=== PATIENT | female | born 1940 | race Caucasian/White ===

== ENCOUNTER 2018-07-10 13:32 | Emergency (ER) | payer MEDICARE, OTHER ==
[2018-07-10] MEDS ORDERED: LORAZEPAM INJ 2 MG/1 ML VIAL IV ONE (15:27)
--- NOTE | 2018-07-10 15:32 | ER Document Report ---
ED Medical Screen (RME) - General Chief Complaint: Chest Pain Stated Complaint: CHEST PAIN Time Seen by Provider: 07/10/18 15:00 Primary Care Provider: IFTIKHAR WALLACE [Primary Care Provider] - Follow up as needed Mode of Arrival: Ambulatory Information source: Patient TRAVEL OUTSIDE OF THE [place]S. IN LAST 30 DAYS: No - HPI Notes: 07/10/18 15:28 Rapid medical exam in triage : patient is a 78-year-old female history of atrial fibrillation, thyroid irregularity, hyponatremia, CHF, on CPAP, stage III kidney disease presents with report that she is down from [place] staying with her daughter and presents with report of intermittent chest pain for the last week with dyspnea on exertion and headache and generalized dizziness. The patient reports her blood pressures have been running elevated. She has been checking them regularly. The patient denies any belching or cough. She describes her headache is intermittent and generalized. She reports no focal numbness or paresthesia. The patient has a history of anxiety and lorazepam as 1 of her medications, which include isosorbide, Coumadin, amlodipine, Synthroid, atenolol, Neurontin, metformin. No cough or congestion. Patient has dyspnea on exertion but no orthopnea. No change in the chronic right lower extremity decubitus ulcer. Physical exam HEENT atraumatic normocephalic Neck supple no JVD Cardiovascular regular rhythm with a slightly bradycardic rate of 52 with 1/6 systolic ejection murmur best auscultated at the apex. Lungs coarse breath sounds scant dry crackles to both bases Abdomen nontender no mass. Extremities 1+ lower extremity edema there is a stage III decubitus right lower extremity medial aspect measures 2 cm diameter without evidence for infection. Neurologic exam no focal deficits no cerebellar ataxia no motor or sensory deficits. EKG is interpreted by me showed sinus bradycardia heart rate of 51 with LVH and repolarization changes. There is no gross evidence for acute ND or ischemia. No old EKG available. Patient will have head CT chest x-ray lab workup and further evaluation and care please see partner's note for further management and evaluation. 07/10/18 15:30 - Related Data Allergies/Adverse Reactions: No Known Allergies Allergy (Unverified 07/10/18 13:35) Past Medical History - General Information source: Patient - Social History Chew tobacco use (# tins/day): No Frequency of alcohol use: Rare Drug Abuse: None - Past Medical History Cardiac Medical History: Reports: Hx Atrial Fibrillation, Hx Congestive Heart Failure, Hx Hypertension Renal/ Medical History: Denies: Hx Peritoneal Dialysis Psychiatric Medical History: Reports: Hx Depression - anxiety Past Surgical History: Reports: Hx Abdominal Surgery, Hx Hysterectomy, Hx Orthopedic Surgery - TMJ, L foot amputation Physical Exam - Vital signs Vitals: Temp Pulse Resp BP Pulse Ox 98.0 F 57 L 20 165/71 H 97 07/10/18 13:56 07/10/18 13:56 07/10/18 13:56 07/10/18 13:56 07/10/18 13:56 Course - Vital Signs Vital signs: Temp Pulse Resp BP Pulse Ox 98.0 F 57 L 20 165/71 H 97 07/10/18 13:56 07/10/18 13:56 07/10/18 13:56 07/10/18 13:56 07/10/18 13:56 Doctor's Discharge - Discharge Referrals: LOCALMD,NO [Primary Care Provider] - Follow up as needed
--- NOTE | 2018-07-10 15:54 | RADIOLOGY REPORT (SQ) ---
EXAM DESCRIPTION: CT HEAD WITHOUT COMPLETED DATE/TIME: 07/10/2018 3:44 pm REASON FOR STUDY: headache, on coumadin COMPARISON: None. TECHNIQUE: Axial images acquired through the brain without intravenous contrast. Images reviewed wi th bone, brain and subdural windows. Additional sagittal and coronal reconstructions were generated. Images stored on PACS. All CT scanners at this facility use dose modulation, iterative reconstruction, and/or weight based d osing when appropriate to reduce radiation dose to as low as reasonably achievable (ALARA). [facility]: Dose Right [facility]: CareDose [facility]: Dose Right [facility]: Teradose 4D [facility]: DoPay RADIATION DOSE: CT Rad equipment meets quality standard of care and radiation dose reduction techniq ues were employed. CTDIvol: 53.2 mGy. DLP: 991 mGy-cm. mGy. LIMITATIONS: None. FINDINGS: VENTRICLES: Normal size and contour. CEREBRUM: No CT evidence of acute large territory ischemic change, acute intracranial hemorrhage, mas s effect, or midline shift. Multiple chronic appearing infarcts are present in the bilateral basal ga nglia. More diffuse small vessel ischemic changes present in the bifrontal and biparietal white rayo er. CEREBELLUM: Old lacunar infarct in the right cerebellar hemisphere. No acute large territory ischemi c change in the posterior fossa. No posterior fossa shift or mass effect EXTRAAXIAL SPACES: No fluid collections. No masses. ORBITS AND GLOBE: No intra- or extraconal masses. Normal contour of globe without masses. CALVARIUM: No fracture. PARANASAL SINUSES: No fluid or mucosal thickening. SOFT TISSUES: No mass or hematoma. OTHER: No other significant finding. IMPRESSION: No acute findings. Old lacunar infarcts in the bilateral basal ganglia and right cerebellar hemisphere. Chronic small v essel white matter disease in the bifrontal and biparietal regions EVIDENCE OF ACUTE STROKE: NO. COMMENT: Quality ID # 436: Final reports with documentation of one or more dose reduction techniques (e.g., Automated exposure control, adjustment of the mA and/or kV according to patient size, use of iterative reconstruction technique) TECHNICAL DOCUMENTATION: JOB ID: [id number] [employer]- All Rights Reserved Reading location - IP/workstation name: [email or web address]
[2018-07-10 15:55] LABS: ABSOLUTE BASOPHILS # (AUTO) 0.1 10^3/uL (0.0-0.2); ABSOLUTE EOSINOPHILS # (AUTO) 0.1 10^3/uL (0.0-0.6); ABSOLUTE LYMPHOCYTES (AUTO) 1.1 10^3/uL (0.5-4.7); ABSOLUTE MONOCYTES (AUTO) 0.6 10^3/uL (0.1-1.4); ABSOLUTE NEUT (AUTO) 7.6 10^3/uL (1.7-8.2); BASOPHILS % (AUTO) 0.7 % (0-2); EOSINOPHILS % (AUTO) 0.9 % (0-6); HEMATOCRIT 41.9 % (36.0-47.0); HEMOGLOBIN 14.4 g/dL (12.0-15.5); LYMPHOCYTES % (AUTO) 11.9 % (13-45); MEAN CORPUSCULAR HEMOGLOBIN 31.6 pg (27.0-33.4); MEAN CORPUSCULAR HGB CONC 34.3 g/dL (32.0-36.0); MEAN CORPUSCULAR VOLUME 92 fl (80-97); MONOCYTES % (AUTO) 5.9 % (3-13); PLATELET COUNT 314 10^3/uL (150-450); RED BLOOD COUNT 4.55 10^6/uL (3.72-5.28); RED CELL DISTRIBUTION WIDTH 14.4 % (11.5-14.0); SEGMENTED NEUTROPHILS % (AUTO) 80.6 % (42-78); TOTAL CELLS COUNTED % (AUTO) 100 %; WHITE BLOOD COUNT 9.4 10^3/uL (4.0-10.5)
[2018-07-10 15:57] LABS: APPEARANCE,URINE CLEAR; BILIRUBIN,URINE NEGATIVE (NEGATIVE); COLOR,URINE STRAW; GLUCOSE, URINE NEGATIVE (NEGATIVE); KETONES,URINE NEGATIVE (NEGATIVE); LEUKOCYTE ESTERASE,URINE NEGATIVE (NEGATIVE); NITRITE,URINE NEGATIVE (NEGATIVE); PROTEIN,URINE NEGATIVE (NEGATIVE); URINE SPECIFIC GRAVITY 1.004; UROBILINOGEN,URINE NEGATIVE mg/dL (<2.0)
--- NOTE | 2018-07-10 15:58 | RADIOLOGY REPORT (SQ) ---
EXAM DESCRIPTION: CHEST SINGLE VIEW COMPLETED DATE/TIME: 07/10/2018 3:45 pm REASON FOR STUDY: chest pain COMPARISON: None. EXAM PARAMETERS: NUMBER OF VIEWS: One view. TECHNIQUE: Single frontal radiographic view of the chest acquired. RADIATION DOSE: NA LIMITATIONS: None. FINDINGS: LUNGS AND PLEURA: No opacities, masses or pneumothorax. No pleural effusion. MEDIASTINUM AND HILAR STRUCTURES: No masses. Contour normal. HEART AND VASCULAR STRUCTURES: Heart normal in size. Normal vasculature. BONES: No acute findings. HARDWARE: None in the chest. OTHER: No other significant finding. IMPRESSION: NO ACUTE RADIOGRAPHIC FINDING IN THE CHEST. TECHNICAL DOCUMENTATION: JOB ID: [id number] [employer]- All Rights Reserved Reading location - IP/workstation name: [email or web address]
[2018-07-10 16:04] LABS: INTERNATIONAL RATION (INR) 1.29; PROTHROMBIN TIME 16.7 SEC (11.4-15.4)
[2018-07-10 16:09] LABS: ALANINE AMINOTRANSFERASE 27 U/L (9-52); ALBUMIN 4.8 g/dL (3.5-5.0); ALKALINE PHOSPHATASE 80 U/L (38-126); ANION GAP 13 (5-19); ASPARTATE AMINO TRANSFERASE 28 U/L (14-36); BILIRUBIN,DIRECT 0.1 mg/dL (0.0-0.4); BILIRUBIN,TOTAL 0.5 mg/dL (0.2-1.3); BLOOD UREA NITROGEN 17 mg/dL (7-20); CALCIUM 10.1 mg/dL (8.4-10.2); CARBON DIOXIDE 27 mmol/L (22-30); CHLORIDE 95 mmol/L (98-107); GLUCOSE 99 mg/dL (75-110); POTASSIUM 4.5 mmol/L (3.6-5.0); SODIUM 135.3 mmol/L (137-145); TOTAL PROTEIN 8.3 g/dL (6.3-8.2)
[2018-07-10 16:21] LABS: TROPONIN I 0.015 ng/mL
[2018-07-10 16:25] LABS: FREE T4 (FREE THYROXINE) 1.24 ng/dL (0.78-2.19)
[2018-07-10 16:39] LABS: THYROID STIMULATING HORMONE 0.84 uIU/mL (0.47-4.68)
--- NOTE | 2018-07-10 17:21 | ER Document Report ---
ED Cardiac - General Chief Complaint: Chest Pain Stated Complaint: CHEST PAIN Time Seen by Provider: 07/10/18 15:00 Primary Care Provider: IFTIKHAR WALLACE [NO LOCAL MD] - Follow up as needed Mode of Arrival: Ambulatory Information source: Patient TRAVEL OUTSIDE OF THE [place] IN LAST 30 DAYS: No - HPI Patient complains to provider of: Chest pain, Shortness of breath Was the onset of pain: Gradual Is the pain a: New problem Chest pain location: Substernal Quality of pain: Intermittent, Mild, Achy Severity now: Mild Severity at worst: Mild Chest pain precipitating factors: At Rest Associated symptoms: Shortness of breath Exacerbated by: Denies Relieved by: Nothing Similar symptoms previously: No Recently seen / treated by doctor: No Notes: Patient is a 78-year-old female presenting to the emergency room today complaining of intermittent chest pain with shortness of breath and dyspnea on exertion as well as a headache over the past week, she is visiting her daughter from [place] since 07/01/2018, she denies a history of similar symptoms previously although she has a history of congestive heart failure, hypertension and hypothyroidism, she denies a cough, congestion or fever, denies nausea or vomiting, no abdominal pain - Related Data Allergies/Adverse Reactions: No Known Allergies Allergy (Unverified 07/10/18 13:35) Past Medical History - General Information source: Patient - Social History Smoking Status: Never Smoker Chew tobacco use (# tins/day): No Frequency of alcohol use: Rare Drug Abuse: None Family History: None Patient has suicidal ideation: No Patient has homicidal ideation: No - Past Medical History Cardiac Medical History: Reports: Hx Atrial Fibrillation, Hx Congestive Heart Failure, Hx Hypertension Renal/ Medical History: Denies: Hx Peritoneal Dialysis Psychiatric Medical History: Reports: Hx Depression - anxiety Past Surgical History: Reports: Hx Abdominal Surgery, Hx Hysterectomy, Hx Orthopedic Surgery - TMJ, L foot amputation Review of Systems - Review of Systems Constitutional: No symptoms reported EENT: No symptoms reported Cardiovascular: See HPI Respiratory: See HPI Gastrointestinal: No symptoms reported Genitourinary: No symptoms reported Female Genitourinary: No symptoms reported Musculoskeletal: No symptoms reported Skin: No symptoms reported Hematologic/Lymphatic: No symptoms reported Neurological/Psychological: See HPI -: Yes All other systems reviewed and negative Physical Exam - Vital signs Vitals: Temp Pulse Resp BP Pulse Ox 98.0 F 57 L 20 165/71 H 97 07/10/18 13:56 07/10/18 13:56 07/10/18 13:56 07/10/18 13:56 07/10/18 13:56 Interpretation: Normal - General General appearance: Appears well, Alert - HEENT Head: Normocephalic, Atraumatic Eyes: Normal Pupils: PERRL - Respiratory Respiratory status: No respiratory distress Chest status: Nontender Breath sounds: Normal Chest palpation: Normal - Cardiovascular Rhythm: Regular, Bradycardia Heart sounds: Normal auscultation Murmur: No - Abdominal Inspection: Normal Distension: No distension Bowel sounds: Normal Tenderness: Nontender Organomegaly: No organomegaly - Back Back: Normal, Nontender - Extremities General upper extremity: Normal inspection, Nontender, Normal color, Normal ROM, Normal temperature General lower extremity: Normal color, Normal ROM, Normal temperature. No: Anand's sign - Neurological Neuro grossly intact: Yes Cognition: Normal Orientation: AAOx4 Lorton Coma Scale Eye Opening: Spontaneous Lorton Coma Scale Verbal: Oriented Lorton Coma Scale Motor: Obeys Commands Martita Coma Scale Total: 15 Speech: Normal Motor strength normal: LUE, RUE, LLE, RLE Sensory: Normal - Psychological Associated symptoms: Normal affect, Normal mood - Skin Skin Temperature: Warm Skin Moisture: Dry Skin Color: Normal Course - Re-evaluation Re-evalutation: 07/10/18 21:46 Lab and imaging findings discussed with patient at bedside which are fairly unremarkable, she is noted to have a slightly elevated BNP and therefore was placed on Bumex, troponins x2 are negative, CTA of the chest is without evidence for pulmonary embolism or other acute abnormality, CT scan of the head shows old lacunar infarcts, this finding was discussed with patient, she has a known his tory of a stroke many years ago, patient was discharged with instructions for follow-up and advised to return if symptoms worsen, patient acknowledges understanding and agreement with this plan - Vital Signs Vital signs: Temp Pulse Resp BP Pulse Ox 98.7 F 57 L 16 178/74 H 99 07/10/18 19:54 07/10/18 13:56 07/10/18 19:54 07/10/18 19:54 07/10/18 19:54 - Laboratory Result Diagrams: 07/10/18 15:28 07/10/18 15:28 Laboratory results interpreted by me: 07/10/18 07/10/18 07/10/18 15:28 15:28 15:28 RDW 14.4 H Seg Neutrophils % 80.6 H Lymphocytes % 11.9 L PT Sodium 135.3 L Chloride 95 L Est GFR (Non-Af Amer) 59 L NT-Pro-B Natriuret Pep 1720 H Total Protein 8.3 H 07/10/18 15:28 RDW Seg Neutrophils % Lymphocytes % PT 16.7 H Sodium Chloride Est GFR (Non-Af Amer) NT-Pro-B Natriuret Pep Total Protein - Diagnostic Test Radiology reviewed: Image reviewed, Reports reviewed - EKG Interpretation by Me EKG shows normal: Sinus rhythm Rate: Bradycardia Discharge - Discharge Clinical Impression: Chest pain, Shortness of breath Condition: Stable Disposition: HOME, SELF-CARE Instructions: Chest Pain of Unclear Cause ([facility]) Additional Instructions: Follow up with your primary care provider in one to 2 days. Return to the emergency room immediately if symptoms worsen or any additional concerns. You have been given a prescription for Bumex which will help with your shortness of breath the prescription is for 1 tablet daily, however you should take it for the next 3 days and see how you feel. If he will no longer experience any shortness of breath you do not have to take it any longer. Prescriptions: Bumetanide [Bumex 1 mg Tablet] 1 tab PO DAILY #10 tab Referrals: LOCALMD,NO [NO LOCAL MD] - Follow up as needed
[2018-07-10] MEDS ORDERED: CLONIDINE HCL 0.2 MG TABLET PO ONE (17:22)
--- NOTE | 2018-07-10 18:31 | RADIOLOGY REPORT (SQ) ---
EXAM DESCRIPTION: CTA CHEST COMPLETED DATE/TIME: 07/10/2018 6:02 pm REASON FOR STUDY: SOB, cp COMPARISON: None. TECHNIQUE: CT scan of the chest performed using helical scanning technique with dynamic intravenous contrast injection. Images reviewed with lung, soft tissue and bone windows. Reconstructed coronal and sagittal MPR images reviewed. Additional 3 dimensional post-processing performed to develop Maximal Intensity Projection images (AR P). All images stored on PACS. All CT scanners at this facility use dose modulation, iterative reconstruction, and/or weight based d osing when appropriate to reduce radiation dose to as low as reasonably achievable (ALARA). [facility]: Dose Right [facility]: CareDose [facility]: Dose Right [facility]: Teradose 4D [facility]: [employer] CONTRAST TYPE AND DOSE: contrast/concentration: Isovue 350.00 mg/ml; Total Contrast Delivered: 78.0 ml; Total Saline Delivered: 76.4 ml Contrast bolus optimized for the pulmonary arteries. Not diagnostic for the aorta. RENAL FUNCTION: BUN 17 creatinine 0.92 RADIATION DOSE: CT Rad equipment meets quality standard of care and radiation dose reduction techniq ues were employed. CTDIvol: 15.5 - 39.7 mGy. DLP: 655 mGy-cm. . LIMITATIONS: None. FINDINGS: LUNGS AND PLEURA: No masses, infiltrates, or pneumothorax. No pleural effusions or pleura l calcifications. AORTA AND GREAT VESSELS: No aneurysm. Contrast bolus not optimized for the aorta. HEART: No pericardial effusion. No significant coronary artery calcifications. PULMONARY ARTERIES: No emboli visualized in the main pulmonary arteries or the segmental branches. HILAR AND MEDIASTINAL STRUCTURES: No identified masses or abnormal nodes. HARDWARE: None in the chest. UPPER ABDOMEN: No significant findings. Limited exam. THYROID AND OTHER SOFT TISSUES: No masses. No adenopathy. BONES: No acute or significant finding. 3D MIPS: Confirm above findings. OTHER: No other significant finding. IMPRESSION: NORMAL CTA OF THE CHEST. NO PULMONARY EMBOLI. COMMENT: Quality ID # [id number]: Final reports with documentation of one or more dose reduction techniques (e.g., Automated exposure control, adjustment of the mA and/or kV according to patient size, use of iterative reconstruction technique) TECHNICAL DOCUMENTATION: JOB ID: [id number] [employer]- All Rights Reserved Reading location - IP/workstation name: [email or web address]
[2018-07-10 19:58] VITALS: BP 178/74
--- NOTE | 2018-07-10 22:50 | EKG REPORT ---
SEVERITY:- ABNORMAL ECG - SINUS OR ECTOPIC ATRIAL RHYTHM LVH WITH IVCD, LAD AND SECONDARY REPOL ABNRM LATERAL INFARCT, AGE INDETERMINATE : Confirmed by: Vimal Calvin 10-Jul-2018 22:49:42
== END 2018-07-10 19:58 | disposition home or self-care (01) ==
LOC: ER 13:32
DX: R07.9 Chest pain, unspecified (principal); R06.02 Shortness of breath; R06.00 Dyspnea, unspecified; R51 Headache; I50.9 Heart failure, unspecified; I11.0 Hypertensive heart disease with heart failure; E03.9 Hypothyroidism, unspecified
CPT/HCPCS: 93005; 99284; 96374; 36415; 84439; 83735; 84443; 85025; 85610; 80053; 81001; 84484; 83880; 71045; 70450; 71275; 93010; A9270; J2060

== ENCOUNTER 2018-07-16 20:09 | Emergency (ER) | payer MEDICARE, OTHER ==
[2018-07-16] MEDS ORDERED: ATROPINE SULFATE INJ 0.4 MG/1 ML VIAL ONE (20:18)
[2018-07-16] MEDS ORDERED: ATROPINE SULFATE INJ 1 MG/1 ML VIAL ONE ×2 (20:21→21:50)
--- NOTE | 2018-07-16 20:43 | ER Document Report ---
ED General - General Chief Complaint: Shortness Of Breath Stated Complaint: SHORTNESS OF BREATH Time Seen by Provider: 07/16/18 20:41 Mode of Arrival: Stretcher Information source: Patient, Relative Notes: This is a 78-year-old female she has a history of CHF, atrial fibrillation (Coumadin), peripheral vascular disease (right lower extremity venous stasis ulcer). Patient brought in by daughter because of a syncopal episode today. Patient also states she had an episode of chest pain earlier in the day. She states she feels weak and dizzy. TRAVEL OUTSIDE OF THE [place] IN LAST 30 DAYS: No - HPI Onset: This morning Onset/Duration: Gradual Quality of pain: No pain - No pain now Severity: None Pain Level: Denies Associated symptoms: Chest pain - She had an episode of chest pain earlier in the day. She has none now predominant symptom now is dizziness intermittently, Shortness of breath Exacerbated by: Denies Relieved by: Denies Similar symptoms previously: Yes Recently seen / treated by doctor: Yes - Related Data Allergies/Adverse Reactions: No Known Allergies Allergy (Unverified 07/10/18 13:35) Past Medical History - General Information source: Patient, Parent - Social History Smoking Status: Unknown if Ever Smoked Cigarette use (# per day): No Chew tobacco use (# tins/day): No Frequency of alcohol use: None Drug Abuse: None Lives with: Family Family History: None Patient has suicidal ideation: No Patient has homicidal ideation: No - Past Medical History Cardiac Medical History: Reports: Hx Atrial Fibrillation, Hx Congestive Heart Failure, Hx Hypertension Renal/ Medical History: Denies: Hx Peritoneal Dialysis Psychiatric Medical History: Reports: Hx Depression - anxiety Past Surgical History: Reports: Hx Abdominal Surgery, Hx Hysterectomy, Hx Orthopedic Surgery - TMJ, L foot amputation Review of Systems - Review of Systems Constitutional: denies: Chills, Fever EENT: No symptoms reported Cardiovascular: See HPI Respiratory: See HPI Gastrointestinal: No symptoms reported Genitourinary: No symptoms reported Female Genitourinary: No symptoms reported Musculoskeletal: No symptoms reported Skin: No symptoms reported Hematologic/Lymphatic: No symptoms reported Neurological/Psychological: See HPI Physical Exam - Vital signs Vitals: Temp Pulse Resp BP Pulse Ox 97.7 F 54 L 20 152/111 H 97 07/16/18 20:14 07/16/18 20:14 07/16/18 20:14 07/16/18 20:14 07/16/18 20:14 Notes: Chronically ill-appearing 78-year-old female, pressure 158/98, pulse 107 : HEAD: Atraumatic, normocephalic. EYES: Pupils equal round and reactive to light, extraocular movements intact, sclera anicteric, conjunctiva are normal. ENT: TMs normal, nares patent, oropharynx clear without exudates. Moist mucous membranes. NECK: Normal range of motion, supple without obvious mass or JVD. LUNGS: Breath sounds clear to auscultation bilaterally and equal. No wheezes rales or rhonchi. HEART: Regular rate and rhythm without murmurs, rubs or gallops. ABDOMEN: Soft, normoactive bowel sounds. No tenderness to palpation. No guarding, no rebound. No masses appreciated. EXTREMITIES: Normal range of motion, no pitting or edema. No clubbing or cyanosis. NEUROLOGICAL: Cranial nerves II through XII grossly intact. Normal speech, moving all extremities. PSYCH: Normal mood, normal affect. SKIN: Warm, Dry, normal turgor, no rashes or lesions noted. Course - Re-evaluation Re-evalutation: 07/16/18 23:55 Note: On several occasions, the patient did bradycardia down while on the monitor. Her heart rate appeared to go into a junctional rhythm with a narrow QRS complex and a rate of 30-40. She became symptomatic at this time. She did this several times. At one point, the QRS appeared wide but we are unable to catch his on the rhythm strip. I did discuss this with Dr. Cervantes of cardiology any recommended transfer for evaluation for possible need of pacemaker. Patient is on a small dose of atenolol as well as amlodipine and we are holding those medicines at this point. She did fall earlier when she had a syncopal episode so we did do a head CT (given that she is on Coumadin) and that showed no evidence of acute bleeding. Her first set of cardiac enzymes are normal. 07/16/18 23:57 Discussed case with Mauricio Vallejo who is covering for cardiology at [facility] who is accepted transfer. - Vital Signs Vital signs: Temp Pulse Resp BP Pulse Ox 97.7 F 54 L 16 179/75 H 100 07/16/18 20:14 07/16/18 20:14 07/17/18 00:49 07/17/18 00:49 07/17/18 00:49 - Laboratory Result Diagrams: 07/16/18 20:24 07/16/18 20:24 Laboratory results interpreted by me: 07/16/18 07/16/18 07/16/18 20:24 20:24 20:24 WBC 13.0 H RDW 14.1 H Seg Neutrophils % 80.5 H Absolute Neutrophils 10.5 H PT 22.0 H Carbonic Acid ABG pH ABG pCO2 ABG pO2 ABG O2 Saturation Sodium 123.6 L Chloride 86 L Creatinine 1.31 H Est GFR ( Amer) 47 L Est GFR (Non-Af Amer) 39 L Glucose 193 H Lactic Acid AST 40 H Creatine Kinase 267 H 07/16/18 07/16/18 21:30 21:30 WBC RDW Seg Neutrophils % Absolute Neutrophils PT Carbonic Acid 0.70 L ABG pH 7.60 H* ABG pCO2 23.4 L ABG pO2 118.2 H ABG O2 Saturation 98.9 H Sodium Chloride Creatinine Est GFR ( Amer) Est GFR (Non-Af Amer) Glucose Lactic Acid 3.8 H AST Creatine Kinase - Diagnostic Test Radiology reviewed: Image reviewed, Reports reviewed - Chest x-ray shows no infiltrates. CT of the head shows no acute bleed. - EKG Interpretation by Me Rate: Bradycardia - Initial EKG was A. fib with a ventricular rate of 110. Patient did have episodes of now thanks bradycardia which appeared junctional in nature on the rhythm strips. Patient was symptomatic at this time. Critical Care Note - Critical Care Note Total time excluding time spent on procedures (mins): 60 Discharge - Discharge Clinical Impression: Syncope with collapse, Bradycardia Condition: Serious Disposition: [facility]
[2018-07-16 21:00] LABS: ABSOLUTE BASOPHILS # (AUTO) 0.1 10^3/uL (0.0-0.2); ABSOLUTE EOSINOPHILS # (AUTO) 0.1 10^3/uL (0.0-0.6); ABSOLUTE LYMPHOCYTES (AUTO) 1.8 10^3/uL (0.5-4.7); ABSOLUTE MONOCYTES (AUTO) 0.5 10^3/uL (0.1-1.4); ABSOLUTE NEUT (AUTO) 10.5 10^3/uL (1.7-8.2); BASOPHILS % (AUTO) 0.6 % (0-2); EOSINOPHILS % (AUTO) 0.6 % (0-6); HEMATOCRIT 45.4 % (36.0-47.0); HEMOGLOBIN 15.5 g/dL (12.0-15.5); LYMPHOCYTES % (AUTO) 14.1 % (13-45); MEAN CORPUSCULAR HEMOGLOBIN 31.2 pg (27.0-33.4); MEAN CORPUSCULAR HGB CONC 34.2 g/dL (32.0-36.0); MEAN CORPUSCULAR VOLUME 91 fl (80-97); MONOCYTES % (AUTO) 4.2 % (3-13); PLATELET COUNT 294 10^3/uL (150-450); RED BLOOD COUNT 4.98 10^6/uL (3.72-5.28); RED CELL DISTRIBUTION WIDTH 14.1 % (11.5-14.0); SEGMENTED NEUTROPHILS % (AUTO) 80.5 % (42-78); TOTAL CELLS COUNTED % (AUTO) 100 %
[2018-07-16 21:01] LABS: INTERNATIONAL RATION (INR) 1.82
[2018-07-16 21:12] LABS: ALANINE AMINOTRANSFERASE 21 U/L (9-52); ALBUMIN 4.4 g/dL (3.5-5.0); ALKALINE PHOSPHATASE 80 U/L (38-126); ANION GAP 16 (5-19); ASPARTATE AMINO TRANSFERASE 40 U/L (14-36); BILIRUBIN,DIRECT 0.4 mg/dL (0.0-0.4); BILIRUBIN,TOTAL 0.7 mg/dL (0.2-1.3); BLOOD UREA NITROGEN 20 mg/dL (7-20); CALCIUM 10.1 mg/dL (8.4-10.2); CARBON DIOXIDE 22 mmol/L (22-30); CHLORIDE 86 mmol/L (98-107); CREATINE KINASE 267 U/L (30-135); GLUCOSE 193 mg/dL (75-110); SODIUM 123.6 mmol/L (137-145); TOTAL PROTEIN 7.9 g/dL (6.3-8.2)
[2018-07-16 21:24] LABS: CREATINE KINASE MB 3.35 ng/mL (<4.55)
[2018-07-16 21:26] LABS: TROPONIN I 0.046 ng/mL
--- NOTE | 2018-07-16 21:35 | RADIOLOGY REPORT (SQ) ---
EXAM DESCRIPTION: XR CHEST 1 VIEW COMPLETED DATE/TME: 07/16/2018 20:43 CLINICAL HISTORY: 78 years, Female, sob COMPARISON: 07/10/2018. NUMBER OF VIEWS: 1 TECHNIQUE: Single view, AP portable chest was obtained. LIMITATIONS: Antilordotic patient positioning and rotation limiting evaluation of the cardiac mediastinal silhouette. FINDINGS: Stable cardiac and mediastinal silhouette. Heart size is normal. Tortuous atherosclerotic thoracic aorta. Aortic valve calcification noted. Low lung volumes grossly clear without focal opacity, pneumothorax or pleural effusions. The visualized bones are within normal limits. IMPRESSION: No acute cardiopulmonary abnormalities. copyright 2010 [employer]- All Rights Reserved
[2018-07-16 21:50] LABS: ARTERIAL BLOOD HCO3 22.7 mmol/L (20-24); ARTERIAL BLOOD O2 SATURATION 98.9 % (94-98); ARTERIAL BLOOD PCO2 23.4 mmHg (35-45); ARTERIAL BLOOD PO2 118.2 mmHg (80-100); ARTERIAL BLOOD TOTAL CO2 23.4 mmol/L (21-25)
[2018-07-16 21:52] LABS: ARTERIAL BLOOD FIO2 1.5LNC
--- NOTE | 2018-07-16 23:10 | RADIOLOGY REPORT (SQ) ---
CT HEAD WITHOUT IV CONTRAST EXAM DATE: 07/16/2018 21:47 HISTORY: Altered mental status. COMPARISON: 07/10/2018 TECHNIQUE: CT scan of the brain without IV contrast. This exam was performed according to our departmental dose-optimization program, which includes automated exposure control, adjustment of the mA and/or kV according to patient size and/or use of iterative reconstruction technique. FINDINGS: Diffuse involutional changes are present. There are scattered areas of hypoattenuation within the periventricular white matter, which likely represent chronic microvascular ischemia. There are also old lacunar infarcts in the bilateral basal ganglia and right cerebellar hemisphere. No evidence of acute infarction, intracranial hemorrhage, extra-axial fluid collection, or midline shift. No air-fluid levels are seen in the paranasal sinuses to suggest acute sinusitis. No depressed skull fracture. IMPRESSION: 1. No acute intracranial findings. 2. Chronic senescent changes with atrophy, old lacunar infarcts, and chronic microvascular ischemia.
[2018-07-17 01:02] VITALS: BP 179/75
--- NOTE | 2018-07-17 14:45 | EKG REPORT ---
SEVERITY:- ABNORMAL ECG - SINUS OR ECTOPIC ATRIAL RHYTHM SUPRAVENTRICULAR BIGEMINY INCOMPLETE RIGHT BUNDLE BRANCH BLOCK LVH WITH IVCD, LAD AND SECONDARY REPOL ABNRM LATERAL INFARCT, AGE INDETERMINATE : Confirmed by: Miri Ashby MD 17-Jul-2018 14:45:06
--- NOTE | 2018-07-17 14:47 | EKG REPORT ---
SEVERITY:- ABNORMAL ECG - ATRIAL FIBRILLATION, V-RATE 75-153 LVH WITH IVCD, LAD AND SECONDARY REPOL ABNRM LATERAL INFARCT, AGE INDETERMINATE : Confirmed by: Miri Ashby MD 17-Jul-2018 14:45:23
--- NOTE | 2018-07-17 14:47 | EKG REPORT ---
SEVERITY:- ABNORMAL ECG - SINUS BRADYCARDIA ATRIAL PREMATURE COMPLEX LVH WITH IVCD, LAD AND SECONDARY REPOL ABNRM LATERAL INFARCT, AGE INDETERMINATE : Confirmed by: Miri Ashby MD 17-Jul-2018 14:45:10
--- NOTE | 2018-07-17 14:47 | EKG REPORT ---
SEVERITY:- ABNORMAL ECG - SINUS RHYTHM ABERRANT COMPLEX INCOMPLETE RIGHT BUNDLE BRANCH BLOCK LVH WITH IVCD, LAD AND SECONDARY REPOL ABNRM LATERAL INFARCT, AGE INDETERMINATE : Confirmed by: Miri Ashby MD 17-Jul-2018 14:45:18
== END 2018-07-17 01:07 | disposition short-term general hospital (02) ==
LOC: ER 20:09
DX: R00.1 Bradycardia, unspecified (principal); R55 Syncope and collapse; I48.91 Unspecified atrial fibrillation; Z79.01 Long term (current) use of anticoagulants; R53.1 Weakness; R06.02 Shortness of breath; I10 Essential (primary) hypertension
CPT/HCPCS: 36415; 70450; 71045; 80053; 82550; 82553; 82803; 83605; 84484; 85025; 85610; 93005; 93010; 99291